=== PATIENT | female | born 1975 | race Caucasian/White ===

== ENCOUNTER 2021-03-03 06:37 | Day surgery (SDC) | payer BC ==
[~2021-03-03 06:37] MED LIST: Lactated Ringers 1,000 ML IV SCH; Sodium Chloride 0.9% 10 ML SDV IV PRN; Sodium Chloride 0.9% 10 ML Syringe FLUSH PRN; Sodium Chloride 0.9% 2.5 ML Syringe FLUSH PRN; ceFAZolin 2 GM in Premix Bag 1 BAG IV ONE
[2021-03-03] MEDS ORDERED: Lidocaine 2% 5 ML SDV ONE ×2 (06:46→06:47)
[2021-03-03] MEDS ORDERED: propofoL 100 ML ONE ×2 (06:46→08:47)
[2021-03-03] MEDS ORDERED: Sugammadex Sodium 200 MG/2 ML VIAL ONE (06:46)
[2021-03-03] MEDS ORDERED: Metoclopramide 10 MG/2 ML SDV ONE (06:46)
[2021-03-03] MEDS ORDERED: Ondansetron 4 MG/2 ML SDV ONE ×2 (06:46)
[2021-03-03] MEDS ORDERED: Rocuronium Bromide 50 MG/5 ML Syringe ONE ×3 (06:46→08:25)
[2021-03-03] MEDS ORDERED: Sodium Chloride 0.9% 20 ML ONE (06:48)
[2021-03-03] MEDS ORDERED: fentaNYL 100 MCG/2 ML SDV ONE ×2 (06:50→10:07)
[2021-03-03] MEDS ORDERED: Morphine 10 MG/ML Syringe ONE (06:51)
[2021-03-03] MEDS ORDERED: Octyl 2-Cyanoacrylate 1 Tube ONE (07:10)
[2021-03-03] MEDS ORDERED: Bupivacaine 0.5% 30 ML SDV ONE (07:10)
[2021-03-03] MEDS ORDERED: Metoclopramide 10 MG/2 ML SDV IVPUSH PRN (07:14)
[2021-03-03] MEDS ORDERED: fentaNYL 100 MCG/2 ML SDV IVPUSH PRN (07:14)
[2021-03-03] MEDS ORDERED: Morphine 10 MG/ML Syringe IVPUSH PRN (07:14)
[2021-03-03] MEDS ORDERED: Albuterol 0.083% 2.5 MG/3 ML Neb Soln NEB PRN (07:14)
[2021-03-03] MEDS ORDERED: Naloxone 0.4 MG/ML Syringe IVPUSH PRN (07:14)
[2021-03-03] MEDS ORDERED: Ondansetron 4 MG/2 ML SDV IVPUSH PRN (07:14)
--- NOTE | 2021-03-03 07:14 | PCM.PREANE ---
Preanesthetic Assessment - Anesthesia/Transfusion/Family Hx Anesthesia History: Prior Anesthesia Without Reaction Family History of Anesthesia Reaction: No Transfusion History: No Prior Transfusion(s) - Review of Systems General: No Symptoms Pulmonary: No Symptoms Cardiovascular: No Symptoms Gastrointestinal: Abdominal Pain, Nausea Neurological: No Symptoms Other: Reports: None - Physical Assessment NPO Status Date: 03/03/21 NPO Status Time: 00:00 Height: 5 ft 9 in Weight: 324 lb ASA Class: 3 Mental Status: Alert & Oriented x3 Airway Class: Mallampati = 3 Dentition: Reports: Normal Dentition Thyro-Mental Finger Breadths: 3 Mouth Opening Finger Breadths: 4 ROM/Head Extension: Full Lungs: Clear to Auscultation, Normal Respiratory Effort Cardiovascular: Regular Rate, Regular Rhythm - Allergies Allergies/Adverse Reactions: Allergies Allergy/AdvReac Type Severity Reaction Status Date / Time codeine Allergy Rash Verified 02/25/21 10:14 - Blood Blood Available: No - Anesthesia Plan Pre-Op Medication Ordered: Other (Scopolamine patch) - Acknowledgements Anesthesia Type Planned: General Anesthesia Pt an Appropriate Candidate for the Planned Anesthesia: Yes Alternatives and Risks of Anesthesia Discussed w Pt/Guardian: Yes Pt/Guardian Understands and Agrees with Anesthesia Plan: Yes PreAnesthesia Questionnaire HEENT History: Reports: Other (See Below) Other HEENT History: wears contacts Cardiovascular History: Reports: None Respiratory History: Reports: None Gastrointestinal History: Reports: Cholelithiasis Genitourinary History: Reports: None [employer] History: Reports: Musculoskeletal History: Reports: None Neurological History: Reports: None Psychiatric History: Reports: None Endocrine/Metabolic History: Reports: Obesity/BMI 30+ Hematologic History: Reports: None Immunologic History: Reports: None Oncologic (Cancer) History: Reports: None Dermatologic History: Reports: None - Past Surgical History Head Surgeries/Procedures: Reports: None HEENT Surgical History: Reports: Tonsillectomy Cardiovascular Surgical History: Reports: None Respiratory Surgical History: Reports: None GI Surgical History: Reports: None Female Surgical History: Reports: Section Endocrine Surgical History: Reports: None Neurological Surgical History: Reports: None Musculoskeletal Surgical History: Reports: None Oncologic Surgical History: Reports: None - SUBSTANCE USE Tobacco Use Status *Q: Never Tobacco User Recreational Drug Use History: No - HOME MEDS Home Medications: Home Meds medroxyPROGESTERone Acetate [Medroxyprogesterone Acetate] 150 mg IM ASDIRECTED 02/25/21 [History] - CURRENT (IN HOUSE) MEDS Current Meds: Current Medications Lactated Ringer's (Ringers, Lactated) 1,000 mls @ 125 mls/hr IV ASDIRECTED LAMONTE Sodium Chloride (Sodium Chloride 0.9% 2.5 Ml Syringe) 2.5 ml FLUSH ASDIRECTED PRN PRN Reason: Keep Vein Open Sodium Chloride (Sodium Chloride 0.9% 10 Ml Sdv) 10 ml IV ASDIRECTED PRN PRN Reason: IV Use Sodium Chloride (Sodium Chloride 0.9% 10 Ml Syringe) 10 ml FLUSH ASDIRECTED PRN PRN Reason: Keep Vein Open Sodium Chloride (Sodium Chloride 0.9% 2.5 Ml Syringe) 2.5 ml FLUSH ASDIRECTED PRN PRN Reason: Keep Vein Open Sodium Chloride (Sodium Chloride 0.9% 10 Ml Syringe) 10 ml FLUSH ASDIRECTED PRN PRN Reason: Keep Vein Open Discontinued Medications Fentanyl (Fentanyl 100 Mcg/2 Ml Sdv) Confirm Administered Dose 100 mcg .ROUTE .STK-MED ONE Stop: 03/03/21 06:51 Cefazolin Sodium/Dextrose 2 gm (/ Premix) 50 mls @ 100 mls/hr IV ONETIME ONE Stop: 02/28/21 10:45 Propofol (Diprivan 100 Ml) Confirm Administered Dose 100 mls @ as directed .ROUTE .STK-MED ONE Stop: 03/03/21 06:47 Sodium Chloride (Normal Saline) Confirm Administered Dose 20 mls @ as directed .ROUTE .STK-MED ONE Stop: 03/03/21 06:49 Lidocaine (Lidocaine 2% 5 Ml Sdv) Confirm Administered Dose 5 ml .ROUTE .STK-MED ONE Stop: 03/03/21 06:47 Lidocaine (Lidocaine 2% 5 Ml Sdv) Confirm Administered Dose 5 ml .ROUTE .STK-MED ONE Stop: 03/03/21 06:48 Metoclopramide HCl (Metoclopramide 10 Mg/2 Ml Sdv) Confirm Administered Dose 10 mg .ROUTE .STK-MED ONE Stop: 03/03/21 06:47 Morphine Sulfate (Morphine 10 Mg/Ml Syringe) Confirm Administered Dose 10 mg .ROUTE .STK-MED ONE Stop: 03/03/21 06:52 Ondansetron HCl (Ondansetron 4 Mg/2 Ml Sdv) Confirm Administered Dose 4 mg .ROUTE .STK-MED ONE Stop: 03/03/21 06:47 Ondansetron HCl (Ondansetron 4 Mg/2 Ml Sdv) Confirm Administered Dose 4 mg .ROUTE .STK-MED ONE Stop: 03/03/21 06:47 Rocuronium Avilla (Rocuronium Av[place] 50 Mg/5 Ml Syringe) Confirm Administered Dose 50 mg .ROUTE .[employer]-MED ONE Stop: 03/03/21 06:47 Sugammadex Sodium (Sugammadex Sodium 200 Mg/2 Ml Vial) Confirm Administered Dose 200 mg .ROUTE .[employer]-MED ONE Stop: 03/03/21 06:47
[2021-03-03] MEDS ORDERED: Indocyanine Green 25 MG SDV ONE (08:13)
[2021-03-03] MEDS ORDERED: Esmolol 100 MG/10 ML SDV ONE (08:15)
[2021-03-03] MEDS ORDERED: ceFAZolin 1 GM Vial ONE ×3 (08:24→08:25)
--- NOTE | 2021-03-03 10:10 | PCM.OPNOTE ---
- General Post-Op/Procedure Note Date of Surgery/Procedure: 03/03/21 Operative Procedure(s): Laparoscopic cholecystectomy Findings: Normal appearing gallbladder, no adhesions, liver grossly enlarged Pre Op Diagnosis: Symptomatic cholelithiasis Post-Op Diagnosis: same Anesthesia Technique: General ET Tube Primary Surgeon: Katrina Pelayo Fluid Replacement, Intraop: 2,000 Output, Urine Amount: 200 EBL in mLs: 5 Condition: Good
--- NOTE | 2021-03-03 10:12 | PCM.POSTAN ---
POST ANESTHESIA ASSESSMENT - MENTAL STATUS Mental Status: Alert, Oriented - VITAL SIGNS Vital Signs: Last Vital Signs Temp 97.9 F 03/03/21 06:50 Pulse 76 03/03/21 10:08 Resp 11 L 03/03/21 10:08 BP 113/69 03/03/21 10:08 Pulse Ox 99 03/03/21 10:08 - RESPIRATORY Respiratory Status: Respiratory Rate WNL, Airway Patent, O2 Saturation Stable - CARDIOVASCULAR CV Status: Pulse Rate WNL, Blood Pressure Stable - GASTROINTESTINAL GI Status: No Symptoms - POST OP HYDRATION Hydration Status: Adequate & Stable
[2021-03-03] MEDS: HYDROmorphone 2 MG/ML Syringe IVPUSH PRN ×2 (10:31→10:41)
--- NOTE | 2021-03-03 10:48 | PCM48HPAN ---
Post Anesthesia Note - EVALUATION WITHIN 48HRS OF ANESTHETIC Vital Signs in Normal Range: Yes Patient Participated in Evaluation: Yes Respiratory Function Stable: Yes Airway Patent: Yes Cardiovascular Function Stable: Yes Hydration Status Stable: Yes Pain Control Satisfactory: Yes Nausea and Vomiting Control Satisfactory: Yes Mental Status Recovered: Yes Vital Signs: Last Vital Signs Temp 98.4 F 03/03/21 10:02 Pulse 69 03/03/21 10:43 Resp 12 03/03/21 10:43 BP 135/80 03/03/21 10:43 Pulse Ox 95 03/03/21 10:43
--- NOTE | 2021-03-03 16:40 | OR ---
SURGEON: KATRINA PELAYO MD DATE OF PROCEDURE: 03/03/2021 PREOPERATIVE DIAGNOSIS: Symptomatic cholelithiasis. POSTOPERATIVE DIAGNOSIS: Symptomatic cholelithiasis. PROCEDURE PERFORMED: Laparoscopic cholecystectomy. PRIMARY SURGEON: Katrina Pelayo MD ANESTHESIA: General endotracheal anesthesia. FLUIDS: 2000 mL crystalloid. ESTIMATED BLOOD LOSS: 5 mL. URINE OUTPUT: 200 mL. FINDINGS: Normal-appearing gallbladder. Enlarged liver. COMPLICATIONS: None. INDICATIONS: The patient is a 45-year-old female who presented with symptomatic cholelithiasis. Her BMI is 47. The patient and I discussed the need for a laparoscopic, possible open cholecystectomy. I explained the procedure, expected perioperative course, and the risks including bleeding, infection, or damage to surrounding structures as well as the anesthetic challenges and operative challenges due to her weight. She verbalized understanding and wishes to proceed. PROCEDURE IN DETAIL: The patient was brought in to the OR and placed on the OR table in supine position. A time-out was completed verifying the patient's name, age, date of , allergies, and procedure to be performed. General endotracheal anesthesia was induced. The left arm was tucked at the patient's side and a Gray catheter placed. The abdomen was prepped and draped in usual standard fashion. The patient was noted to have some excoriations under her umbilicus. This was likely due to a local yeast infection. Instead, I chose an area superior to the umbilicus to place my first port. I anesthetized this area with 0.5% Marcaine plain. An 11-blade was used to make an incision along this area. Cautery was used to dissect down to the level of subcutaneous fat. The patient had a large amount of subcutaneous fat overlying her fascia. Appendiceal retractors were brought in to assist in bluntly dissecting down to the fascia. The fascia was identified and grasped with Kochers. Curved Hammonds scissors was used to incise the fascia. The patient had a large amount of preperitoneal fat. I used a hemostat to dissect through this and grasped the peritoneum. It was elevated and incised sharply with the Metzenbaum scissors. Entry in to the abdomen was palpated digitally. An extra long 12 mm Jackson trocar was placed into the abdomen and it was insufflated. 5 mm trocars were placed in the following locations under direct visualization; one in the epigastric area, one in the right flank, and one 2 fingerbreadths below the right subcostal margin in the midclavicular line. Two of my trocars sleeves were made extra long due to the thickness of the patient's abdominal wall. On inspection of the right upper quadrant, the patient had an enlarged and fatty liver. She had a large amount of fat within her omentum. She was placed in steep Trendelenburg position and airplaned to the left. The dome of the gallbladder was grasped and elevated. I began dissection along the proximal half of the gallbladder. Hook cautery was used to score the peritoneum. Given how heavy her liver was, I had to make multiple position changes and adjust my graspers on the gallbladder multiple times to obtain appropriate visualization. Eventually, I was able to clear away both the cystic duct and artery and one third of the proximal cystic plate. Indocyanine green was given during the case, and a photograph was taken of the indocyanine filling the gallbladder and cystic duct. A bolus of the dye was given and I could see the cystic artery light up confirming my anatomy. I then doubly clipped and ligated the cystic duct and artery. Using hook cautery, I took down the remaining attachments of the gallbladder to the cystic plate. The gallbladder was then placed in an EndoCatch bag and removed through the supraumbilical port site. The 12 mm Jackson trocar was replaced. At one point in the case, a small rent was made in the body of the gallbladder. There was some bile spillage within the abdomen. I irrigated the abdomen copiously with normal saline and suctioned this out. I then removed my 5 mm trocars and allowed the abdomen to desufflate. The 12 mm Jackson trocar was removed as well. I grasped the fascia with Kochers and closed it with interrupted 0 Vicryl sutures at the supraumbilical port site. The subcutaneous fat was closed in multiple layers, first with a running 3-0 Vicryl suture and more superficially with interrupted 3-0 Vicryl sutures. A running 4-0 Monocryl suture was used to close the skin. Dermabond was applied. I closed the 5 mm port sites using a combination of interrupted and running 4-0 sutures. Dermabond and sterile dressings were applied to all the wounds. The patient was extubated and taken to the PACU in stable condition. All counts were complete and correct at the end of the case. JAMAAL / ABDIRIZAK /[id number]
== END 2021-03-03 12:44 | disposition home or self-care (01) ==
LOC: MW.SDS 06:37
PROVIDERS: ATTEND Surgery
DX: K80.10 Calculus of gallbladder with chronic cholecystitis without obstruction (principal); K76.0 Fatty (change of) liver, not elsewhere classified; Z88.6 Allergy status to analgesic agent; E66.9 Obesity, unspecified; Z68.41 Body mass index [BMI] 40.0-44.9, adult
CPT/HCPCS: 47563; 81025; A9270; J0131; J0690; J1170; J2704; J3010; J3490; J7120; 00790; J2270; J2405; J2765